=== PATIENT | female | born 1995 | race Caucasian/White ===

== ENCOUNTER 2024-11-29 18:43 | Emergency (ER) | payer MEDICAID, OTHER ==
[~2024-11-29] VITALS: Ht 167.6 cm; Wt 62.1 kg
[2024-11-29] MEDS ORDERED: ASPIRIN 81 MG TAB.CHEW ONE (19:02)
[2024-11-29] MEDS: ASPIRIN 81 MG TAB.CHEW PO ONE (19:03)
[2024-11-29 19:14] LABS: BASOPHILS % (AUTO) 0.5 % (0.0-2.0); EOSINOPHILS # (AUTO) 0.1 K/uL (0.0-0.7); EOSINOPHILS % (AUTO) 1.9 % (0.0-7.0); HEMOGLOBIN 12.8 g/dL (10.9-14.3); LYMPHOCYTES # (AUTO) 2.6 K/uL (0.8-4.8); LYMPHOCYTES % (AUTO) 33.6 % (20.5-51.5); MEAN CORPUSCULAR HEMOGLOBIN 28.5 uug (24.7-32.8); MEAN CORPUSCULAR HGB CONC 35 g/dL (32.3-35.6); MEAN CORPUSCULAR VOLUME 82.2 fL (75.5-95.3); MONOCYTES # (AUTO) 0.4 K/uL (0.1-1.30); MONOCYTES % (AUTO) 5.6 % (0.0-11.0); NEUTROPHILS # (AUTO) 4.6 K/uL (1.8-8.9); NEUTROPHILS % (AUTO) 58.4 % (38.5-71.5); PLATELET COUNT (AUTO) 203 K/uL (179-408); WHITE BLOOD COUNT (AUTO) 7.8 K/uL (3.8-11.8)
[2024-11-29 19:20] LABS: DIFFERENTIAL COMMENT 1
[2024-11-29 19:24] LABS: CALCIUM 9.2 mg/dL (8.5-10.1); CARBON DIOXIDE 28 mmol/L (21-32); CHLORIDE 106 mmol/L (98-107); CREATININE 0.7 mg/dL (0.6-1.3); GLUCOSE 82 mg/dL (74-106); POTASSIUM 3.7 mmol/L (3.5-5.1); SODIUM SERUM 146 mmol/L (136-145); UREA NITROGEN, BLOOD 13 mg/dL (7-18)
[2024-11-29 19:28] LABS: ALBUMIN 4.1 g/dL (3.4-5.0); BILIRUBIN,DIRECT 0.1 mg/dL (0.0-0.2); BILIRUBIN,TOTAL 0.3 mg/dL (0.2-1.0)
[2024-11-29] MEDS ORDERED: HYDROMORPHONE 1 MG/1 ML DISP.SYRIN ONE ×2 (19:29→21:49)
[2024-11-29] MEDS ORDERED: ONDANSETRON 4 MG/2 ML VIAL ONE (19:29)
[2024-11-29 19:37] LABS: NT-PRO BNP 80 pg/mL (0-125)
[2024-11-29] MEDS: HYDROMORPHONE 1 MG/1 ML DISP.SYRIN IV ONE ×2 (19:40→22:00)
[2024-11-29] MEDS: ONDANSETRON 4 MG/2 ML VIAL IV ONE (19:40)
[2024-11-29] MEDS ORDERED: LORA-259 PO (21:39)
[2024-11-29] MEDS ORDERED: HYDR-4209 PO (21:39)
[2024-11-29 22:11] VITALS: BP 110/73; TEMP 98.3; O2SAT 99
== END 2024-11-29 22:14 | disposition home or self-care (01) ==
LOC: ER 18:49
DX: R07.9 Chest pain, unspecified (principal); F41.9 Anxiety disorder, unspecified; R10.2 Pelvic and perineal pain
CPT/HCPCS: 99285; 96374; 71045; 96375; 80076; 80048; 83880; 85025; 84484 ×2; 84702; 36415; 93005; 96376; J1171 ×2; J2405; A4606; A4663